=== PATIENT | male | born 1945 | race Caucasian/White ===

== ENCOUNTER 2018-02-12 09:27 | Day surgery (SDC) | payer MEDICARE, BC ==
[~2018-02-12] VITALS: Ht 182.9 cm; Wt 86.7 kg
[2018-02-12] MEDS ORDERED: LISI5 PO (09:56)
[2018-02-12] MEDS ORDERED: RANI150EL (09:56)
[2018-02-12] MEDS ORDERED: Adult Low Dose81 MG PO (09:57)
== END 2018-02-12 11:13 | disposition home or self-care (01) ==
LOC: ORSCSDS 09:27
PROVIDERS: Internal Medicine Gastroenterology
PROC: 0DBK8ZX Excision of Ascending Colon, Via Natural or Artificial Opening Endoscopic, Diagnostic (ICD-10-PCS; principal; 2018-02-12 11:15)
PROC: 0DBM8ZX Excision of Descending Colon, Via Natural or Artificial Opening Endoscopic, Diagnostic (ICD-10-PCS; principal; 2018-02-12 11:15)
PROC: 0DBN8ZX Excision of Sigmoid Colon, Via Natural or Artificial Opening Endoscopic, Diagnostic (ICD-10-PCS; principal; 2018-02-12 11:15)
DX: Z12.11 Encounter for screening for malignant neoplasm of colon (principal); D12.2 Benign neoplasm of ascending colon; D12.4 Benign neoplasm of descending colon; D12.5 Benign neoplasm of sigmoid colon; K64.8 Other hemorrhoids; K57.30 Diverticulosis of large intestine without perforation or abscess without bleeding; I10 Essential (primary) hypertension; K22.70 Barrett's esophagus without dysplasia; Z87.891 Personal history of nicotine dependence; Z79.82 Long term (current) use of aspirin; Z79.899 Other long term (current) drug therapy
CPT/HCPCS: 88305; J7120

== ENCOUNTER 2020-11-07 09:49 | Day surgery (SDC) | payer MEDICARE, BC ==
[~2020-11-07] VITALS: Ht 182.9 cm; Wt 92.0 kg
[~2020-11-07 09:49] MED LIST: Adult Low Dose81 MG PO; LISI5 PO; RANI150EL
[2020-11-07] MEDS ORDERED: OMEP20ER (10:18)
--- NOTE | 2020-11-07 10:25 | NUR ---
11/07/20 1025 Dana Cerrato TOLERATED THE SUBTABS ALTHOUGH HE COMPLAINED OF SOME NAUSEA.
== END 2020-11-07 11:27 | disposition home or self-care (01) ==
LOC: ORSCSDS 09:49
PROVIDERS: Internal Medicine Gastroenterology
PROC: 0DBK8ZX Excision of Ascending Colon, Via Natural or Artificial Opening Endoscopic, Diagnostic (ICD-10-PCS; principal; 2020-11-07 11:00)
PROC: 0DB58ZX Excision of Esophagus, Via Natural or Artificial Opening Endoscopic, Diagnostic (ICD-10-PCS; principal; 2020-11-07 11:00)
PROC: 0DB78ZX Excision of Stomach, Pylorus, Via Natural or Artificial Opening Endoscopic, Diagnostic (ICD-10-PCS; principal; 2020-11-07 11:00)
PROC: 0DBM8ZX Excision of Descending Colon, Via Natural or Artificial Opening Endoscopic, Diagnostic (ICD-10-PCS; principal; 2020-11-07 11:00)
DX: Z12.11 Encounter for screening for malignant neoplasm of colon (principal); Z86.010 Personal history of colon polyps; K22.70 Barrett's esophagus without dysplasia; K21.9 Gastro-esophageal reflux disease without esophagitis; D12.2 Benign neoplasm of ascending colon; D12.4 Benign neoplasm of descending colon; K29.70 Gastritis, unspecified, without bleeding; K57.30 Diverticulosis of large intestine without perforation or abscess without bleeding; K64.1 Second degree hemorrhoids; I10 Essential (primary) hypertension; F17.210 Nicotine dependence, cigarettes, uncomplicated; Z85.46 Personal history of malignant neoplasm of prostate; Z79.899 Other long term (current) drug therapy; Z79.82 Long term (current) use of aspirin
CPT/HCPCS: 88305; 88342; J2704; J7120

== ENCOUNTER → 2021-01-18 | Outpatient (CLI) | payer MEDICARE, BC ==
[~2021-01-18] MED LIST changes: +OMEP20ER
== END ==
LOC: LAB 06:13 → LAB SHORT 06:13
DX: R73.9 Hyperglycemia, unspecified (principal)
CPT/HCPCS: 36415; 83036

== ENCOUNTER 2024-04-22 09:22 | Day surgery (SDC) | payer MEDICARE, BC ==
[~2024-04-22] VITALS: Ht 182.9 cm; Wt 93.7 kg
[~2024-04-22 09:22] MED LIST changes: +Lactated Ringer's 1,000 ML IV ONE; +propofoL 50 ML IV ONE
[2024-04-22] MEDS ORDERED: DICLOFENAC 1% (10:06)
[2024-04-22] MEDS ORDERED: ZINC15 (10:06)
[2024-04-22] MEDS ORDERED: VITAMIN D (10:07)
[2024-04-22] MEDS ORDERED: C COMPLEX1000 M1 (10:08)
[2024-04-22] MEDS ORDERED: ACETONIDE CREAM (10:09)
[2024-04-22] MEDS ORDERED: Lactated Ringer's 1,000 ML IV ONE (10:45)
[2024-04-22 11:54] VITALS: BP 117/67
== END 2024-04-22 11:53 | disposition home or self-care (01) ==
LOC: ORSCSDS 09:22
PROVIDERS: Internal Medicine Gastroenterology
PROC: 0DB58ZX Excision of Esophagus, Via Natural or Artificial Opening Endoscopic, Diagnostic (ICD-10-PCS; principal; 2024-04-22 10:45)
DX: K22.70 Barrett's esophagus without dysplasia (principal); K21.00 Gastro-esophageal reflux disease with esophagitis, without bleeding; I12.9 Hypertensive chronic kidney disease with stage 1 through stage 4 chronic kidney disease, or unspecified chronic kidney disease; N18.1 Chronic kidney disease, stage 1; Z79.82 Long term (current) use of aspirin; Z79.899 Other long term (current) drug therapy
CPT/HCPCS: 88305; J2704; J7120